=== PATIENT | male | born 1975 | race African-American/Black ===

== ENCOUNTER 2023-04-09 14:40 | Inpatient (IN) | payer OTHER ==
[2023-04-09 15:10] VITALS: BMI 24.0
[2023-04-09] MEDS ORDERED: MAG HYDROX/AL HYDROX/SIMETH 30 ML UNIT-DOSE CUP PO PRN (17:42)
[2023-04-09] MEDS ORDERED: BENZONATATE 200 MG CAPSULE PO PRN (17:42)
[2023-04-09] MEDS ORDERED: LOPERAMIDE HCL 2 MG CAPSULE PO PRN (17:42)
[2023-04-09] MEDS ORDERED: NALOXONE HCL (KLOXXADO) 8 MG SPRAY NS PRN (17:42)
[2023-04-09] MEDS ORDERED: BENZOCAINE/MENTHOL (CHLORASEPTIC ) LOZENGE MM PRN (17:42)
[2023-04-09] MEDS ORDERED: MAGNESIUM HYDROX 2400MG/30ML ORAL SUSPENSION 30 ML CUP PO PRN (17:42)
[2023-04-09] MEDS ORDERED: IBUPROFEN 400 MG TABLET (FP) PO PRN (17:42)
[2023-04-09] MEDS ORDERED: IBUPROFEN 600 MG TABLET (FP) PO PRN (17:42)
[2023-04-09] MEDS ORDERED: guaiFENesin 600 MG TABLET.ER (FP) PO PRN (17:42)
[2023-04-09] MEDS ORDERED: NALOXONE HCL 0.4 MG/ML VIAL IM PRN (17:42)
[2023-04-09] MEDS ORDERED: POLYETHYLENE GLYCOL (HEALTHYLAX) 3350 17 GM PACKET PO PRN (17:42)
[2023-04-09] MEDS ORDERED: ONDANSETRON *ODT* 4 MG TABLET SL PRN (17:42)
[2023-04-09] MEDS ORDERED: DICYCLOMINE HCL 10 MG CAPSULE PO PRN (17:42)
[2023-04-09] MEDS ORDERED: ACETAMINOPHEN 325 MG TABLET (FP) PO PRN (17:42)
[2023-04-09] MEDS ORDERED: BISMUTH SUBSALICYLATE 524 MG/30 ML PO PRN (17:42)
[2023-04-09] MEDS: METHOCARBAMOL 500 MG TABLET PO PRN (20:54)
[2023-04-09] MEDS: hydrOXYzine PAMOATE 25 MG CAPSULE (FP) PO PRN (22:40)
[2023-04-09] MEDS: THIAMINE HCL 100 MG TABLET (FP) PO SCH (22:40)
[2023-04-09] MEDS: MELATONIN 5 MG TABLETS PO SCH (22:40)
[2023-04-10] MEDS ORDERED: chlordiazePOXIDE HCL 25 MG CAPSULE PO PRN (10:04)
[2023-04-10] MEDS: PRENATAL VITAMINS W/ FOLIC ACID TABLET (FP) PO SCH (10:25)
[2023-04-10 10:48] LABS: CHLORIDE 113 mmol/L (98-107); HEMATOCRIT 41.9 % (35.4-49); HEMOGLOBIN 13.6 GM/dL (11.7-16.9); MCH 29.2 pg (25.7-33.7); MCHC 32.6 g/dl (32.0-35.9); MEAN CELL VOLUME 89.6 fl (80-96); MEAN PLT VOLUME 8.5 fl (7.5-11.1); PLATELET COUNT 218 10^3/uL (134-434); POTASSIUM 3.9 mmol/L (3.5-5.1); RBC 4.67 M/mm3 (4.00-5.60); RDW 14.4 % (11.9-15.9); SODIUM 147 mmol/L (136-145); WHITE BLOOD COUNT 8.3 K/mm3 (4.0-10.0)
[2023-04-10 10:59] LABS: CALCIUM 8.7 mg/dL (8.5-10.1)
[2023-04-10 11:00] LABS: ALBUMIN 2.7 g/dl (3.4-5.0); ANION GAP 6 mmol/L (4-13); BLOOD UREA NITROGEN 11.9 mg/dL (7-18); CO2 28 mmol/L (21-32); GLUCOSE,RANDOM 95 mg/dL (74-106)
[2023-04-10 11:03] LABS: CREATININE 1.1 mg/dL (0.55-1.3); SGOT/AST 18 U/L (15-37); SGPT/ALT 28 U/L (13-61)
[2023-04-10 11:04] LABS: BILIRUBIN,TOTAL 0.4 mg/dL (0.2-1)
[2023-04-10 11:05] LABS: ALK PHOS 49 U/L (45-117); TOT PROT 5.3 g/dl (6.4-8.2)
[2023-04-10] MEDS: chlordiazePOXIDE HCL 25 MG CAPSULE PO SCH (19:47)
[2023-04-11] MEDS: chlordiazePOXIDE HCL 25 MG CAPSULE PO SCH (05:20)
[2023-04-11] MEDS: chlordiazePOXIDE HCL 10 MG CAPSULE PO SCH (17:25)
[2023-04-12] MEDS ORDERED: chlordiazePOXIDE HCL 10 MG CAPSULE PO PRN
[2023-04-12] MEDS: chlordiazePOXIDE HCL 10 MG CAPSULE PO SCH (05:03)
[2023-04-12 09:32] VITALS: BP 119/77; PULSE 73; RESP 16; TEMP 97.7
[2023-04-13] MEDS ORDERED: chlordiazePOXIDE HCL 10 MG CAPSULE PO SCH (05:00)
[2023-04-14] MEDS ORDERED: chlordiazePOXIDE HCL 10 MG CAPSULE PO ONE (05:00)
== END 2023-04-12 11:47 | disposition home or self-care (01) | DRG 774 ==
LOC: YASAS 14:40 → Y6N 17:40
PROVIDERS: ADMIT Allergy & Immunology; ATTEND Surgery
PROC: HZ2ZZZZ Detoxification Services for Substance Abuse Treatment (ICD-10-PCS; principal; 2023-04-09)
DX: F10.230 Alcohol dependence with withdrawal, uncomplicated (principal); F14.20 Cocaine dependence, uncomplicated; F12.20 Cannabis dependence, uncomplicated; F17.213 Nicotine dependence, cigarettes, with withdrawal; F19.280 Other psychoactive substance dependence with psychoactive substance-induced anxiety disorder; F19.24 Other psychoactive substance dependence with psychoactive substance-induced mood disorder; M54.50 Low back pain, unspecified; G89.29 Other chronic pain
CPT/HCPCS: 36415; 80053; 80307; 85027; 86780; 87635; 93005; 93010

== ENCOUNTER 2023-07-15 18:20 | Inpatient (IN) | payer OTHER ==
[2023-07-15 20:06] VITALS: BMI 23.6
[2023-07-15] MEDS ORDERED: BENZONATATE 200 MG CAPSULE PO PRN (20:14)
[2023-07-15] MEDS ORDERED: DOCUSATE SODIUM 100 MG CAPSULE (FP) PO PRN (20:14)
[2023-07-15] MEDS ORDERED: hydrOXYzine PAMOATE 25 MG CAPSULE (FP) PO PRN (20:14)
[2023-07-15] MEDS ORDERED: ACETAMINOPHEN 325 MG TABLET (FP) PO PRN (20:14)
[2023-07-15] MEDS ORDERED: NICOTINE POLACRILEX 2 MG GUM BUC PRN (20:14)
[2023-07-15] MEDS ORDERED: MAGNESIUM HYDROX 2400MG/30ML ORAL SUSPENSION 30 ML CUP PO PRN (20:14)
[2023-07-15] MEDS ORDERED: BISACODYL 5 MG TABLET.DR (FP) PO PRN (20:14)
[2023-07-15] MEDS ORDERED: LOPERAMIDE HCL 2 MG CAPSULE PO PRN (20:14)
[2023-07-15] MEDS ORDERED: MAG HYDROX/AL HYDROX/SIMETH 30 ML UNIT-DOSE CUP PO PRN (20:14)
[2023-07-15] MEDS ORDERED: guaiFENesin 600 MG TABLET.ER (FP) PO PRN (20:14)
[2023-07-15] MEDS ORDERED: POLYETHYLENE GLYCOL (HEALTHYLAX) 3350 17 GM PACKET PO PRN (20:14)
[2023-07-15] MEDS ORDERED: BENZOCAINE/MENTHOL (CHLORASEPTIC ) LOZENGE MM PRN (20:14)
[2023-07-15] MEDS ORDERED: IBUPROFEN 400 MG TABLET (FP) PO PRN (20:14)
[2023-07-15] MEDS ORDERED: NICOTINE POLACRILEX 2 MG LOZENGE BC PRN (20:14)
[2023-07-15] MEDS: MELATONIN 5 MG TABLETS PO SCH (22:03)
[2023-07-15] MEDS: THIAMINE 100 MG TABLET PO SCH (22:04)
[2023-07-16] MEDS: PRENATAL VITAMINS W/ FOLIC ACID TABLET (FP) PO SCH (10:10)
[2023-07-16 11:58] LABS: HEMATOCRIT 40.4 % (35.4-49); HEMOGLOBIN 13.3 GM/dL (11.7-16.9); MCH 29.2 pg (25.7-33.7); MEAN CELL VOLUME 88.5 fl (80-96); MEAN PLT VOLUME 9.2 fl (7.5-11.1); PLATELET COUNT 208 10^3/uL (134-434); RBC 4.56 M/mm3 (4.00-5.60); RDW 13.8 % (11.9-15.9); WHITE BLOOD COUNT 7.6 K/mm3 (4.0-10.0)
[2023-07-16 12:14] LABS: CHLORIDE 108 mmol/L (98-107); POTASSIUM 3.9 mmol/L (3.5-5.1); SODIUM 142 mmol/L (136-145)
[2023-07-16 12:29] LABS: ANION GAP 6 mmol/L (4-13); BLOOD UREA NITROGEN 11.2 mg/dL (7-18); CALCIUM 8.9 mg/dL (8.5-10.1); CO2 27 mmol/L (21-32); GLUCOSE,RANDOM 88 mg/dL (74-106)
[2023-07-16 12:32] LABS: CREATININE 1.1 mg/dL (0.55-1.3); SGPT/ALT 33 U/L (13-61)
[2023-07-16 12:33] LABS: SGOT/AST 21 U/L (15-37)
[2023-07-16 12:34] LABS: TOT PROT 5.6 g/dl (6.4-8.2)
[2023-07-16 12:35] LABS: ALK PHOS 57 U/L (45-117); BILIRUBIN,TOTAL 0.5 mg/dL (0.2-1)
[2023-07-17] MEDS: BACLOFEN 10 MG TABLET (FP) PO SCH (21:04)
[2023-07-18] MEDS: MAGNESIUM OXIDE 400 MG TABLET (FP) PO SCH (11:28)
[2023-07-18 11:52] LABS: PH,URINE 6.5 (5.0-8.0); URINE APPEARANCE CLEAR; URINE BILIRUBIN NEGATIVE (NEGATIVE); URINE COLOR YELLOW; URINE GLUCOSE (UA) NEGATIVE (NEGATIVE); URINE KETONE NEGATIVE (NEGATIVE); URINE LEUK ESTERASE NEGATIVE (NEGATIVE); URINE NITRITE NEGATIVE (NEGATIVE); URINE PROTEIN NEGATIVE (NEGATIVE); URINE UROBILINOGEN 0.2 mg/dL (0.2-1.0)
[2023-07-19] MEDS: IBUPROFEN 600 MG TABLET (FP) PO PRN (06:45)
[2023-08-03 13:02] LABS: HIV INTERPRETATION NEGATIVE (NEGATIVE)
[2023-08-07 07:01] VITALS: BP 134/87; PULSE 73; RESP 18; TEMP 97.5
== END 2023-08-07 07:51 | disposition home or self-care (01) | DRG 772 ==
LOC: YASAS 18:20 → Y3NR 20:44 → Y3W 07-16 17:37
PROVIDERS: ADMIT Allergy & Immunology; ATTEND Psychiatry & Neurology Pain Medicine
PROC: HZ42ZZZ Group Counseling for Substance Abuse Treatment, Cognitive-Behavioral (ICD-10-PCS; principal; 2023-07-15)
DX: F14.20 Cocaine dependence, uncomplicated (principal); F12.20 Cannabis dependence, uncomplicated; F17.210 Nicotine dependence, cigarettes, uncomplicated; M54.50 Low back pain, unspecified; M62.838 Other muscle spasm
CPT/HCPCS: 36415; 71045-TC-FY; 80053; 80305; 80307; 81003; 85027; 86780; 86803; 87389; 87491; 87591; 87661; 87811; 93005; 93010; J0475

== ENCOUNTER 2024-01-05 15:29 | Inpatient (IN) | payer OTHER ==
[2024-01-05] MEDS ORDERED: POLYETHYLENE GLYCOL (HEALTHYLAX) 3350 17 GM PACKET PO PRN (17:35)
[2024-01-05] MEDS ORDERED: guaiFENesin 600 MG TABLET.ER (FP) PO PRN (17:35)
[2024-01-05] MEDS ORDERED: NALOXONE (NARCAN) HCL 4 MG/0.1 ML SPRAY NS PRN (17:35)
[2024-01-05] MEDS ORDERED: NICOTINE POLACRILEX 2 MG LOZENGE BC PRN (17:35)
[2024-01-05] MEDS ORDERED: ACETAMINOPHEN 325 MG TABLET (FP) PO PRN (17:35)
[2024-01-05] MEDS ORDERED: NALOXONE HCL 0.4 MG/ML VIAL IVPUSH PRN (17:35)
[2024-01-05] MEDS ORDERED: NICOTINE POLACRILEX 2 MG GUM BUC PRN (17:35)
[2024-01-05] MEDS ORDERED: MAGNESIUM HYDROX 2400MG/30ML ORAL SUSPENSION 30 ML CUP PO PRN (17:35)
[2024-01-05] MEDS ORDERED: MAG HYDROX/AL HYDROX/SIMETH 30 ML UNIT-DOSE CUP PO PRN (17:35)
[2024-01-05] MEDS ORDERED: BENZOCAINE/MENTHOL (CHLORASEPTIC ) LOZENGE MM PRN (17:35)
[2024-01-05] MEDS ORDERED: BENZONATATE 200 MG CAPSULE PO PRN (17:35)
[2024-01-05] MEDS: THIAMINE 100 MG TABLET PO SCH (21:18)
[2024-01-05] MEDS: MELATONIN 5 MG TABLETS PO SCH (21:18)
[2024-01-06] MEDS: IBUPROFEN 600 MG TABLET (FP) PO PRN (08:54)
[2024-01-06] MEDS: PRENATAL VITAMINS W/ FOLIC ACID TABLET (FP) PO SCH (10:09)
[2024-01-06] MEDS: METHOCARBAMOL 500 MG TABLET PO PRN (14:36)
[2024-01-07] MEDS: hydrOXYzine PAMOATE 25 MG CAPSULE (FP) PO PRN (09:59)
[2024-01-10] MEDS ORDERED: LIDOCAINE 5% TOPICAL PATCH TP PRN (16:42)
[2024-01-10] MEDS: VITAMINS A AND D TOPICAL OINTMENT TP SCH (17:35)
[2024-01-10] MEDS: MELATONIN 5 MG TABLETS PO SCH (21:06)
[2024-01-10] MEDS: LIDOCAINE PATCH REMOVAL MC SCH (21:07)
[2024-01-10] MEDS: BACLOFEN 10 MG TABLET (FP) PO SCH (21:07)
[2024-01-10] MEDS: MAGNESIUM OXIDE 400 MG TABLET (FP) PO SCH (21:07)
[2024-01-10] MEDS: TOLNAFTATE 1% CREAM 15 GM TUBE TP SCH (21:08)
[2024-01-13] MEDS: IBUPROFEN 400 MG TABLET (FP) PO PRN (06:35)
[2024-01-14] MEDS: ONDANSETRON *ODT* 4 MG TABLET SL PRN (06:49)
[2024-01-15 07:19] VITALS: PULSE 87
[2024-01-15] MEDS: LOPERAMIDE HCL 2 MG CAPSULE PO PRN (10:30)
[2024-01-15] MEDS: RIFAXIMIN 550 MG TABLET PO SCH (21:19)
[2024-01-16 06:34] VITALS: BP 112/74; RESP 17; TEMP 97.8
[2024-01-16] MEDS: NALOXONE (NYS OPIOID OVERDOSE PROGRAM) 4 MG/0.1 ML SPRAY NS SCH (15:43)
== END 2024-01-16 16:20 | disposition home or self-care (01) | DRG 774 ==
LOC: YASAS 15:29 → Y3W 15:30
PROVIDERS: ADMIT Psychiatry & Neurology Pain Medicine; ATTEND Psychiatry & Neurology Pain Medicine
PROC: HZ2ZZZZ Detoxification Services for Substance Abuse Treatment (ICD-10-PCS; principal; 2024-01-05)
DX: F10.20 Alcohol dependence, uncomplicated (principal); F14.20 Cocaine dependence, uncomplicated; F12.20 Cannabis dependence, uncomplicated; F17.210 Nicotine dependence, cigarettes, uncomplicated; B35.3 Tinea pedis; I10 Essential (primary) hypertension; L85.3 Xerosis cutis; M54.50 Low back pain, unspecified; G89.29 Other chronic pain; R11.0 Nausea; R19.7 Diarrhea, unspecified; Z86.19 Personal history of other infectious and parasitic diseases; Z59.02 Unsheltered homelessness
CPT/HCPCS: J0475; Q0162